=== PATIENT | female | born 1945 | race Caucasian/White ===

== ENCOUNTER → 2016-09-19 | Outpatient (CLI) | payer MEDICARE, OTHER ==
--- NOTE | ~2016-09-19 | US24 ---
[facility] A Service [facility] RADIOLOGY TEXT RESULTS PATIENT: YUMIKO CUENCA LOCATION: [facility] : 47 UNIT #: [id number] AGE: [address]: MARY KAY MITCHELL DO SEX: F ORDER DR: [id number] [facility] [address] [facility] [place] [facility]. [place], [place] [address] [id number] O MR#: [id number] Acc #: [id number] NAME: YUMIKO CUENCA : 1945 SEX: F STUDY DATE/TIME: 09/19/2016 13:37 UNIT: [facility] ROOM: STUDY DESCRIPTION: US Breast Unilateral Attending Physician: Mary Kay Mitchell D.O. Referring Physician: Mary Kay Mitchell D.O. Ordering Physician: Mary Kay Mitchell D.O. Primary Care Physician: Mary Kay Mitchell D.O. MEDICAL IMAGING REPORT This report is preliminary unless electronic signature is present EXAM Right breast targeted diagnostic ultrasound. DATE 09/19/2016 HISTORY 70-year-old female who sustained an injury to the right breast in February 2016 when a chair fell against her breast. Palpable abnormality in February 2016 which, on ultrasound, was favored to represent a benign area of hematoma or fat necrosis. Six-month follow up was recommended. COMPARISON Right breast diagnostic ultrasound 03/21/2016. FINDINGS Targeted sonographic imaging was performed at the 6 o'clock axis of the right breast. Normal fibroglandular tissue is seen. The approximately 1.1 cm hypoechoic lesion seen at this location on the previous ultrasound has completely resolved, in keeping with a benign finding. No architectural distortion. No microcalcification. IMPRESSION 1. Right breast BIRADS 1. Negative right breast diagnostic ultrasound. The abnormality on previous diagnostic ultrasound has completely resolved in keeping with benign finding, such as resolved area of hematoma or fat necrosis. 2. The patient is advised to return for routine bilateral screening mammogram, due in February 2017. 3. Findings and recommendations were discussed with the patient today in the Radiology Department. Patients over the age of 40 are entered into a reminder system with target [facility] A Service [facility] RADIOLOGY TEXT RESULTS PATIENT: YUMIKO CUENCA LOCATION: [facility] : 47 UNIT #: [id number] AGE: [address]: MARY KAY MITCHELL DO SEX: F ORDER DR: due date for the next mammogram. A result letter will also be sent to the patient. BIRADS: 1 Negative Dictated by... Amaris Calderon M.D. THIS IS AN ELECTRONICALLY VERIFIED REPORT Amaris Calderon M.D. at 09/20/2016 8:33 AM [facility]/val TD: 09/19/2016 18:06 JOB #: [id number] MEDICAL IMAGING REPORT Page 1 of 1 COPY
== END | disposition home or self-care (01) ==
LOC: CWCC 09-10 10:30
DX: N63 Unspecified lump in breast (principal)
CPT/HCPCS: 76641